=== PATIENT | female | born 1970 | race Caucasian/White ===

== ENCOUNTER 2019-06-13 03:14 | Emergency (ER) | payer SELFPAY ==
[2019-06-13 03:25] VITALS: BP 111/74
[2019-06-13] MEDS ORDERED: DEXAMETHASONE 10 MG/ML VIAL PO STA (03:41)
[2019-06-13] MEDS ORDERED: CHERRY SYRUP 10 ML UDC PO ONE (03:41)
--- NOTE | 2019-06-13 03:44 | ED Physician Documentation ---
PD HPI HEENT - Stated complaint Stated Complaint: SCRATCHY THROAT/RUNNY NOSE - Chief complaint Chief Complaint: Heent - History obtained from History obtained from: Patient, Friend - History of Present Illness Timing - onset: How many days ago (2) Timing - duration: Days (2) Timing - details: Gradual onset, Still present Location: Nose, Throat Worsens: [place] Associated symptoms: Congestion, Rhinorrhea, Cough Similar symptoms before: Diagnosis (flu, strep, om) Recently seen: Not recently seen - Additional information Additional information: Previously well 48-year-old female who is visiting here from [place] has developed a cough and congestion with a sore throat. She has some aches and pains as well and she is here for treatment. Review of Systems Constitutional: reports: Fever, Chills, Myalgias, Fatigue Eyes: denies: Decreased vision Ears: denies: Ear pain Nose: reports: Rhinorrhea / runny nose, Congestion Throat: reports: Sore throat Cardiac: denies: Chest pain / pressure, Palpitations Respiratory: reports: Cough. 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 - Past Surgical History Past Surgical History: No - Present Medications Home Medications: Ambulatory Orders Medication Instructions Recorded Confirmed Azithromycin [Zithromax] 250 mg PO DAILY #4 tablet 06/13/19 - Allergies Allergies/Adverse Reactions: Allergies Allergy/AdvReac Type Severity Reaction Status Date / Time No Known Drug Allergies Allergy Verified 06/13/19 03:25 - Social History Does the pt smoke?: Yes Smoking Status: Current every day smoker Does the pt drink ETOH?: No Does the pt have substance abuse?: No - Immunizations Immunizations are current?: Yes - POLST Patient has POLST: No PD ED PE NORMAL - Vitals Vital signs reviewed: Yes (normal ) - General General: Alert and oriented X 3, No acute distress, Well developed/nourished - HEENT HEENT: Atraumatic, PERRL, EOMI, Other (both TM's are flush and there is tympanosclerosis on the right. The pharynx is generally erythematous without exudate) - Neck Neck: Supple, no meningeal sign, No bony TTP - Cardiac Cardiac: RRR, No murmur - Respiratory Respiratory: No respiratory distress, Clear bilaterally - Abdomen Abdomen: Soft, Non tender - Back Back: No CVA TTP, No spinal TTP - Derm Derm: Normal color, Warm and dry, No rash - Extremities Extremities: No deformity, No edema, No calf tenderness / cord - Neuro Neuro: Alert and oriented X 3, project surveyor 2-12 intact, No motor deficit, Normal speech Eye Opening: Spontaneous Motor: Obeys Commands Verbal: Oriented GCS Score: 15 - Psych Psych: Normal mood, Normal affect Results - Vitals Vitals: Vital Signs - 24 hr 06/13/19 03:23 Temperature 36.3 C L Heart Rate 81 Respiratory 16 Rate Blood Pressure 111/74 O2 Saturation 99 Oxygen O2 Source Room air - Labs Labs: Laboratory Tests 06/13/19 03:15 Group A Strep Rapid Negative PD MEDICAL DECISION MAKING - ED course Complexity details: reviewed results, re-evaluated patient, considered differential, d/w patient, d/w family ED course: 48-year-old female with a sore throat has bilateral otitis on exam and she is administered dexamethasone 10 mg orally and we will place her on some azithromycin. Departure - Departure Disposition: 01 Home, Self Care Clinical Impression: Otitis media Qualifiers: Chronicity: acute Laterality: bilateral Recurrence: not specified as recurrent Spontaneous tympanic membrane rupture: without spontaneous rupture Condition: Stable Instructions: ED Otitis Media Acute Adult Follow-Up: Your, doctor [Other] Prescriptions: Azithromycin [Zithromax] 250 mg PO DAILY #4 tablet
[2019-06-13] MEDS ORDERED: AZITHROMYCIN 250 MG TABLET PO STA (03:46)
== END 2019-06-13 03:56 | disposition home or self-care (01) ==
LOC: ED 03:14
DX: H66.93 Otitis media, unspecified, bilateral (principal); H74.01 Tympanosclerosis, right ear; J02.9 Acute pharyngitis, unspecified; F17.200 Nicotine dependence, unspecified, uncomplicated
CPT/HCPCS: 87070; 87430; 99283; 99284; A9270

== ENCOUNTER 2022-11-29 10:11 | Outpatient (CLI) | payer MEDICAID ==
[2022-11-29 15:26] LABS: BASOPHILS % (AUTO) 0.4 %; EOSINOPHILS # (AUTO) 0.2 10^3/uL (0.0-0.7); EOSINOPHILS % (AUTO) 2.2 %; HCT - HEMATOCRIT 44.9 % (37.0-47.0); HGB - HEMOGLOBIN 15.3 g/dL (12.0-16.0); LYMPHOCYTES # (AUTO) 2.1 10^3/uL (1.5-3.5); MEAN CORPUSCULAR HEMOGLOBIN 31.9 pg (27.0-31.0); MEAN CORPUSCULAR HGB CONC 34.1 g/dL (32.0-36.0); MEAN CORPUSCULAR VOLUME 93.7 fL (81.0-99.0); MEAN PLATELET VOLUME 11.1 fL (7.9-10.8); MONOCYTES # (AUTO) 0.5 10^3/uL (0.0-1.0); MONOCYTES % (AUTO) 6.8 %; NEUTROPHILS # (AUTO) 4.5 10^3/uL (1.5-6.6); NEUTROPHILS % (AUTO) 61.3 %; PLT - PLATELET COUNT 243 10^3/uL (130-450); RED BLOOD COUNT 4.79 10^6/uL (4.20-5.40); RED CELL DISTRIBUTION WIDTH 12.4 % (12.0-15.0); WHITE BLOOD COUNT 7.4 x10^3/uL (4.8-10.8)
[2022-11-29 15:58] LABS: ALBUMIN 4.2 g/dL (3.2-5.5); ALBUMIN/GLOBULIN RATIO 1.6 (1.0-2.2); ALKALINE PHOSPHATASE 93 IU/L (42-121); ALT ALANINE AMINOTRANSFERASE 12 IU/L (10-60); AST ASPARTATE AMINOTRANSFERASE 13 IU/L (10-42); BILIRUBIN,TOTAL 0.6 mg/dL (0.2-1.0); BUN - BLOOD UREA NITROGEN 15 mg/dL (6-20); CALCIUM 9.2 mg/dL (8.5-10.3); CARBON DIOXIDE - CO2 27 mmol/L (21-32); CHLORIDE 106 mmol/L (101-111); CHOL/HDL RATIO 3.8 (<4.4); CHOLESTEROL 218 mg/dL; CREATININE 0.8 mg/dL (0.4-1.0); GFR - MDRD 76 (>89); GLUCOSE 86 mg/dL (70-100); HDL CHOLESTEROL 57 mg/dL; LDL CHOLESTEROL,CALCULATED 142 mg/dL; LDL/HDL RATIO 2.5 (<4.4); POTASSIUM 4.1 mmol/L (3.5-5.0); SODIUM 140 mmol/L (135-145); TOTAL PROTEIN 6.9 g/dL (6.7-8.2); TRIGLYCERIDES 95 mg/dL; VLDL CHOLESTEROL 19 mg/dL
== END 2022-11-29 10:12 | disposition home or self-care (01) ==
LOC: LAB.S 10:11
PROVIDERS: ATTEND Internal Medicine
DX: Z13.228 Encounter for screening for other metabolic disorders (principal); Z13.220 Encounter for screening for lipoid disorders; Z13.29 Encounter for screening for other suspected endocrine disorder; Z13.0 Encounter for screening for diseases of the blood and blood-forming organs and certain disorders involving the immune mechanism
CPT/HCPCS: 36415; 80050; 80061; 83721

== ENCOUNTER 2022-12-15 21:36 | Outpatient (CLI) | payer MEDICAID ==
--- NOTE | 2022-12-16 09:37 | Ultrasound Report ---
PROCEDURE: Pelvic w/Transvaginal INDICATIONS: SCREENING FOR LUNG CA, LOWER ABD PAIN TECHNIQUE: Real-time scanning was performed of the pelvic organs, with image documentation. Additional endovagi nal scanning was necessary due to incomplete visualization of the adnexal and endometrial structures by transabdominal scanning. COMPARISON: None. FINDINGS: Uterus: Uterus is anteverted and normal in size at 8.3 x 4.6 x 5.6 cm. The myometrium is heterogene ous. The endometrium measures 11 mm in combined thickness. Essure coils in the bilateral adnexa. Ovaries: The right ovary measures 2.3 x 1.6 x 1.9 cm, with a calculated ovarian volume of 4 cc. The left ovary measures 2 x 2.5 x 1.6 cm, with a calculated ovarian volume of cc. The ovaries have a no rmal sonographic appearance. Less than 12 follicles can be seen in each ovary. No adnexal masses ar e seen. Incompletely visualized right ovarian cystic lesion measuring 1.8 cm. Other: No pathologic free abdominal or pelvic fluid. IMPRESSION: Essure coils in the bilateral adnexa. Incompletely visualized right ovarian cystic lesion measuring 1.8 cm. Consider 6 month follow-up with pelvic ultrasound. Reviewed by: Warren Reagan on 12/16/2022 9:36 AM PDT Approved by: Warren Reagan on 12/16/2022 9:36 AM PDT Station ID: [id number]
== END 2022-12-15 21:37 | disposition home or self-care (01) ==
LOC: DI 21:36
PROVIDERS: ATTEND Nurse Practitioner Acute Care
DX: N83.201 Unspecified ovarian cyst, right side (principal); R10.30 Lower abdominal pain, unspecified; N94.12 Deep dyspareunia; Z97.5 Presence of (intrauterine) contraceptive device

== ENCOUNTER 2022-12-23 13:48 | Outpatient (CLI) | payer MEDICAID ==
--- NOTE | 2022-12-26 09:15 | Mammography Report ---
BILATERAL DIGITAL SCREENING MAMMOGRAM 3D/2D: 12/23/2022 CLINICAL: Baseline exam. Routine screening. No prior exams were available for comparison. There are scattered areas of fibroglandular density in both breasts (category b / 25%-50% glandular t issue). No significant masses, calcifications, or other findings are seen in either breast. IMPRESSION: NEGATIVE There is no mammographic evidence of malignancy. A 1 year screening mammogram is recommended. Based on the Tyrer Cuzick model (a risk assessment model) the patients lifetime risk is 8.5% and her 10 year risk is 2.1%. According to the ACR, ACS, and NCCN guidelines, an annual breast MRI exam frankie g with mammogram is recommended if the patients lifetime risk is 20% or greater. This exam was interpreted at Station ID: [id number]. NOTE: For mammograms, a report in lay terms will be sent to the patient. Approximately 15% of breast malignancies will not be visualized mammographically. In the management of a palpable breast mass, a negative mammogram must not discourage biopsy of a clinically suspicious lesion. Electronically Signed By: Simeon teague/octavio:12/26/2022 07:06:49 letter sent: No_Letter ACR BI-RADS Category 1: Negative 3341F PARENCHYMAL PATTERN: (A) - The breast(s) demonstrate(s) scattered fibroglandular densities. BI-RADS CATEGORY: (1) - 1 Mammogram [id number] 1 year screening LATERALITY: (B)
== END 2022-12-23 13:49 | disposition home or self-care (01) ==
LOC: DI 13:48
PROVIDERS: ATTEND Nurse Practitioner Acute Care
DX: Z12.31 Encounter for screening mammogram for malignant neoplasm of breast (principal)

== ENCOUNTER 2022-12-23 15:00 | Outpatient (CLI) | payer MEDICAID ==
--- NOTE | 2022-12-23 16:43 | CT Report ---
PROCEDURE: Low Dose Lung Cancer Screen INDICATIONS: SCREENING FOR LUNG CA TECHNIQUE: Noncontrast low-dose axial images were acquired from the pulmonary apices to the posterior costophren ic angles. Multiplanar MIP reformats were then reconstructed. For radiation dose reduction, the follo wing was used: automated exposure control, adjustment of mA and/or kV according to patient size. COMPARISON: None. FINDINGS: Image quality: Excellent. Prior cancer history: Unknown Lungs and pleura: No pleural effusions. No pneumothorax. Mild biapical scarring. Mild bibasilar atel ectasis more pronounced on the right. No focal consolidation. There is a subpleural 2 mm left upper l obe nodule (89/series 4). Benign 2 mm calcified granuloma in the anterior left upper lobe (127/series 4). A few other tiny punctate calcified granulomas noted in the left lower lobe (201/series 4 and 16 5/series 4) Mediastinum: Heart size is normal. No pericardial effusions. No mediastinal adenopathy by size criter ia. No large vessel abnormality. Chest wall and lower neck: Thyroid is unremarkable. No axillary or supraclavicular adenopathy by size . Bones: No aggressive osseous abnormality. Upper Abdomen: Unremarkable. IMPRESSION: Chest without acute cardiopulmonary abnormalities. Benign appearing 2 mm left lower lobe nodule and multiple benign calcified pulmonary granulomas in th e left lung. Lung RAD: 2 - Benign. Recommendation: Continue annual screening in 12 Months with LDCT Non-Lung Significant Findings: None Reviewed by: Simeon Melvin MD on 12/23/2022 4:42 PM PDT Approved by: Simeon Melvin MD on 12/23/2022 4:42 PM PDT Station ID: [id number]
== END 2022-12-23 23:59 | disposition home or self-care (01) ==
LOC: DI 15:00
PROVIDERS: ATTEND Nurse Practitioner Acute Care
DX: Z12.2 Encounter for screening for malignant neoplasm of respiratory organs (principal); R91.1 Solitary pulmonary nodule

== ENCOUNTER 2023-01-03 09:38 | Outpatient (CLI) | payer MEDICAID ==
[2023-01-03 09:46] LABS: HCT - HEMATOCRIT 41.8 % (37.0-47.0); MEAN CORPUSCULAR HEMOGLOBIN 31.6 pg (27.0-31.0); MEAN CORPUSCULAR HGB CONC 33.5 g/dL (32.0-36.0); MEAN CORPUSCULAR VOLUME 94.4 fL (81.0-99.0); MEAN PLATELET VOLUME 9.8 fL (7.9-10.8); RED BLOOD COUNT 4.43 10^6/uL (4.20-5.40); RED CELL DISTRIBUTION WIDTH 12.5 % (12.0-15.0); WHITE BLOOD COUNT 7.6 x10^3/uL (4.8-10.8)
[2023-01-03 09:57] LABS: CREATININE 0.8 mg/dL (0.4-1.0)
== END 2023-01-03 09:39 | disposition home or self-care (01) ==
LOC: LAB 09:38
PROVIDERS: ATTEND Nurse Practitioner
DX: N94.12 Deep dyspareunia (principal); Z97.5 Presence of (intrauterine) contraceptive device
CPT/HCPCS: 36415; 80048; 85027

== ENCOUNTER 2023-02-01 21:15 | Emergency (ER) | payer MEDICAID ==
[2023-02-01 21:28] VITALS: BP 126/73
[2023-02-01] MEDS ORDERED: AMOX/CLAV 875 MG/125 MG TABLET PO STA (21:50)
--- NOTE | 2023-02-01 21:52 | ED Physician Documentation ---
History of Present Illness - Stated complaint Stated Complaint: TOOTH PAIN - Chief complaint Chief Complaint: Heent - Additonal information Additional information: 52-year-old female who has a history of tobacco use as well as former opioid addiction presents emergency department for evaluation of acute left upper mouth pain. She is being followed by [facility] and has an appointment scheduled in a few weeks to have the teeth in her upper mouth extracted. Reports that today she began having acute pain as well as swelling in her upper cheek. No trismus. No fevers. No dysphonia. Tolerating her oral secretions. 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 : None HEENT: None Psych: None Musculoskeletal: None Derm: None - Past Surgical History Past Surgical History: No - Present Medications Home Medications: Ambulatory Orders Medication Instructions Recorded Confirmed Azithromycin [Zithromax] 250 mg PO DAILY #4 tablet 06/13/19 Amox/Clav 875/125 [Augmentin] 1 each PO Q12H #20 tablet 02/01/23 Chlorhexidine [Peridex] 15 ml PO BID #20 ea 02/01/23 - Allergies Allergies/Adverse Reactions: Allergies Allergy/AdvReac Type Severity Reaction Status Date / Time No Known Drug Allergies Allergy Verified 02/01/23 21:25 - Social History Does the pt smoke?: Yes Smoking Status: Current every day smoker Does the pt drink ETOH?: No Does the pt have substance abuse?: No - Immunizations Immunizations are current?: Yes - POLST Patient has POLST: No PD ED PE NORMAL - General General: Alert and oriented X 3, No acute distress - HEENT HEENT: Atraumatic, Moist mucous membranes. No: Dentition benign (Generally poor dentition. She is missing the left upper posterior molars. However the canine and incisors are grossly decayed. There is some swelling of the left cheek without erythema. No trismus. Normal phonation. Normal swallow. Uvula is midline.) - Neck Neck: Supple, no meningeal sign - Cardiac Cardiac: RRR, No murmur - Respiratory Respiratory: Clear bilaterally Results - Vitals Vitals: Vital Signs - 24 hr 02/01/23 21:23 Temperature 36.7 C Heart Rate 75 Respiratory 19 Rate Blood Pressure 126/73 O2 Saturation 99 Oxygen O2 Source Room air PD Medical Decision Making - ED course Complexity details: d/w patient ED course: 52-year-old female presents emergency department for evaluation of acute left upper mouth pain as well as swelling extending into her cheek. Symptoms began today. She has globally poor dentition and is scheduled upcoming to have multiple teeth extracted at [facility]. Clinically I am suspicious she has an abscess. There are no fevers or trismus therefore will defer imaging today. We will start the patient on Augmentin as well as Peridex. Discussed routine conservative care measures for pain to include Tylenol and ibuprofen. Given the patient's opioid abuse history she is requesting no narcotic Konix which I think is appropriate. We did discuss the usual emergent return precautions for worsening symptoms, trismus, fevers or inability to tolerate oral secretions. Departure - Departure Disposition: 01 Home, Self Care Clinical Impression: Dental abscess Condition: Stable Record reviewed to determine appropriate education?: Yes Instructions: ED Abscess Dental Prescriptions: Amox/Clav 875/125 [Augmentin] 1 each PO Q12H #20 tablet Chlorhexidine [Peridex] 15 ml PO BID #20 ea Comments: Brianne you do have some teeth that need to be pulled by the dentist. Do not miss your upcoming appointment. However it looks like you are having new infection develop. I am going to start you on an antibiotic called Augmentin. This has been sent to the [facility] in [place]. In general I recommend that you take Tylenol and ibuprofen [id number] for mouth discomfort. I also sent a prescription for a medicated mouthwash called Peridex. It can be cost prohibitive so if you cannot afford to fill it then just do the salt water gargles 3 times a day. Return to the ER if you are having worsening symptoms despite the antibiotics.
== END 2023-02-01 21:58 | disposition home or self-care (01) ==
LOC: ED 21:15
DX: K04.7 Periapical abscess without sinus (principal); F17.200 Nicotine dependence, unspecified, uncomplicated
CPT/HCPCS: 99282; 99283; A9270

== ENCOUNTER 2023-04-03 10:12 | Outpatient (CLI) | payer MEDICAID | END 2023-04-03 10:13 | disposition home or self-care (01) | LOC: LAB 10:12 | PROVIDERS: ATTEND Obstetrics & Gynecology | DX: Z01.812 Encounter for preprocedural laboratory examination (principal); R93.89 Abnormal findings on diagnostic imaging of other specified body structures; Z97.5 Presence of (intrauterine) contraceptive device | CPT/HCPCS: 86850; 86900; 86901 ==

== ENCOUNTER 2023-04-04 06:46 | Day surgery (SDC) | payer MEDICAID ==
[2023-04-04] MEDS ORDERED: LACTATED RINGERS 1,000 ML IV ONE ×2 (06:52→09:51)
[2023-04-04 07:10] LABS: HCG UR QUAL NEGATIVE
[2023-04-04] MEDS ORDERED: HYDROmorphone 0.5 MG/0.5 ML SYRINGE IVP PRN (07:15)
[2023-04-04] MEDS ORDERED: ATROPINE ABBOJECT 1 MG/10 ML SYRINGE IVP PRN (07:15)
[2023-04-04] MEDS ORDERED: ONDANSETRON 4 MG/2 ML VIAL IVP PRN (07:15)
[2023-04-04] MEDS ORDERED: ePHEDrine 50 MG/ML VIAL IVP PRN (07:15)
[2023-04-04] MEDS ORDERED: MORPHINE 2 MG/ML CARPUJECT IVP PRN (07:15)
[2023-04-04] MEDS ORDERED: fentaNYL 100 MCG/2 ML VIAL IVP PRN (07:15)
[2023-04-04] MEDS ORDERED: METOCLOPRAMIDE 10 MG/2 ML VIAL IVP PRN (07:15)
[2023-04-04] MEDS ORDERED: NALOXONE 0.4 MG/ML VIAL IVP PRN (07:15)
--- NOTE | 2023-04-04 07:15 | ANESTHESIA ---
Pre-Anesthesia VS, & Labs - Diagnosis thickened endometrium, presence of essure implant - Procedure myosure hysteroscopy, laparoscopic B salpingectomy Vital Signs: Temp Pulse Resp BP Pulse Ox O2 Flow Rate 35.9 C L 60 18 113/76 99 0 04/04/23 07:06 04/04/23 07:06 04/04/23 07:06 04/04/23 07:06 04/04/23 07:06 04/04/23 07:06 Height: 5 ft 6 in Weight (kg): 62.5 kg Body Mass Index: 22.2 BMI Classification: Normal - NPO >8 hours - Is Patient ?: No - Lab Results Lab results reviewed: Yes Home Medications and Allergies Home Medications: Ambulatory Orders Acetaminophen [Tylenol] 650 mg PO Q6H PRN 03/31/23 Ibuprofen [Motrin] 600 mg PO Q6H PRN 03/31/23 Acetaminophen [Tylenol] 650 mg PO Q6H PRN 03/31/23 Ibuprofen [Motrin] 600 mg PO Q6H PRN 03/31/23 Allergies/Adverse Reactions: Allergies Allergy/AdvReac Type Severity Reaction Status Date / Time No Known Drug Allergies Allergy Verified 04/03/23 12:59 Anes History & Medical History - Anesthetic History Anesthesia Complications: reports: No previous complications Family history of Anesthesia Complications: Denies Family history of Malignant Hyperthermia: Denies - Medical History Cardiovascular: reports: None Pulmonary: reports: COPD Gastrointestinal: reports: None Urinary: reports: None Neuro: reports: None Musculoskeletal: reports: None Endocrine/Autoimmune: reports: None Blood Disorders: reports: None Skin: reports: None Smoking Status: Current every day smoker History of Cancer?: No - Surgical History Eyes Ears Nose Throat (EENT): reports: Myringotomy (tubes) Other Past Surgical History: dental exrtractions Exam General: Alert, Oriented x3, Cooperative Dental: Poor dentition, Other (missing 23-26, several broken, several extractions from molar regions as well, none loose) Mouth Openin Fingerbreadth Neck Mobility: Normal Mallampati classification: II Thyromental Distance: 4-6 cm Respiratory: Lungs clear, Normal breath sounds, No respiratory distress Cardiovascular: Regular rate Neurological: Normal speech Mental/Cognitive Status: Alert/Oriented X3, Normal for patient Cognitive Status: Within normal limits Plan Anesthesia Type: General Consent for Procedure(s) Verified and Reviewed: Yes Code Status: Attempt Resuscitation ASA classification: 2-Mild systemic disease Is this case an emergency?: No
[2023-04-04] MEDS ORDERED: SILVER NITRATE APPLICATOR TOP ONE (07:20)
[2023-04-04] MEDS ORDERED: BUPIVACAINE 0.25% PF 30 ML VIAL ONE (07:21)
[2023-04-04] MEDS ORDERED: LIDOCAINE 1%-EPI 1:100000 20 ML MDV ONE (07:21)
[2023-04-04] MEDS ORDERED: MIDAZOLAM 2 MG/2 ML VIAL ONE (07:50)
[2023-04-04] MEDS ORDERED: ROCURONIUM 50 MG/5 ML VIAL ONE ×2 (07:51→09:20)
[2023-04-04] MEDS ORDERED: PROPOFOL 200 MG/20 ML VIAL IVP ONE (07:51)
[2023-04-04] MEDS ORDERED: LIDOCAINE-PF 2% 10 ML AMP SUBQ ONE (07:51)
[2023-04-04] MEDS ORDERED: LACTATED RINGERS 1,000 ML IV SCH (08:00)
[2023-04-04] MEDS ORDERED: LIDOCAINE 1%-EPI 1:100000 20 ML MDV SUBQ ONE ×2 (08:30)
[2023-04-04] MEDS ORDERED: BUPIVACAINE 0.25% PF 30 ML VIAL SUBQ ONE ×2 (08:30)
[2023-04-04] MEDS ORDERED: HYDROcod/ACETAM 5/325 MG TABLET PO PRN (09:45)
[2023-04-04] MEDS ORDERED: KETOROLAC 15 MG/ML VIAL IVP PRN (09:45)
[2023-04-04] MEDS ORDERED: SUGAMMADEX 200 MG/2 ML VIAL IVP ONE (09:45)
[2023-04-04] MEDS ORDERED: fentaNYL 100 MCG/2 ML VIAL ONE (09:48)
--- NOTE | 2023-04-04 09:48 | OPERATIVE REPORT ---
Operative Report - General Procedure Date: 04/04/23 Planned Procedure: Hysteroscopy, dilation and curettage, diagnostic laparoscopy, possible Essure removal possible bilateral salpingectomy, Pre-Op Diagnosis: Pelvic pain, amenorrhea Procedure Performed: Hysteroscopy, dilation and curettage, diagnostic laparoscopy, Essure removal, bilateral salpingectomy, Post Op Diagnosis: Pelvic pain, amenorrhea - Procedure Note Primary Surgeon: Black Goode MD Secondary Surgeon: NIXON Gardner Anesthesia Provider: Tigist Mae CRNA Anesthesia Technique: General ET tube Pathology: Bilateral fallopian tubes IV Fluids (mL): 800 Estimated Blood Loss (mL): 10 Findings: Normal-appearing uterus and ovaries. - Other Other Information/Narrative: Patient was taken to the procedure room and placed in dorsal lithotomy position. Hibiclens was used to clean the operative area. Lansford speculum was palced in the vagina and the cervix was visualized. A cervical block was placed using a combination of Marcaine and lidocaine. The anterior lip the cervix was grasped with a single-tooth tenaculum. The cervix was non-stenotic and allowed the easy passage of dilators. Hysteroscope was then used to hydrodilate using normal saline distention media. Hysteroscope was advanced without difficulty using hydrodistention. Cervical canal was noted to have no lesions. Upon entry into the internal cervical os there was noted to be atrophic within the uterus. Bilateral tubal ostia were noted and no Essure device was noted. Hysteroscope was then removed. A sharp curettage was then performed and the cells were collected on a Telfa. Tenaculum was then removed from the cervix noted to be hemostatic. All instruments removed from the vagina Fluid deficit 50 mL. At that point, the patient was redraped and prepped for the laparoscopic portion of the procedure Patient was prepped and draped in the usual fashion. A bivalve speculum was used to visualize the cervix and a uterine manipulator was placed. 2 mL of 0.25% Marcaine was used below the umbilicus. An 11 blade scalpel was used to incise the skin. Direct visual entry was used to place the infraumbilical trocar. Upon entering the peritoneal cavity, low flow was used to ensure appropriate positioning. Upon visualization of the abdominal cavity, high flow was then initiated. 2 additional trocars was placed under visualization in a similar fashion in the right and left lower quadrants. After visualization of the right fallopian tube, it was grasped with an atraumatic grasper. The mesosal pinx was cauterized and cut with a Ligasure device. We then coagulated the proximal tube and with laparoscopic Metzenbaum scissors, dissected the tube to expose the Essure device. The distal tube was removed. The Essure coils were grasped with a blunt tipped grasper and slowly drawn out of the tube, ensuring both the inner and outer coils were removed.. Attention was then turned to the left fallopian tube which was then removed similarly in addition to the Essure device on that side. The abdomen was reviewed for hemostasis, and a healthy- appearing liver was noted. The trocars were then removed, and abdomen was evacuated of gas. The trocar sites were then closed with a 4-0 Monocryl in a sub-cuticular fashion and covered with Dermabond. Patient was taken to the PACU in stable condition. I appreciate the assistance of NIXON Gardner during this procedure, and the assistance in retraction, visualization, dissection, and overall assistance during the case were instrumental to the patient's wellbeing.
[2023-04-04] MEDS ORDERED: KETOROLAC 15 MG/ML VIAL ONE (10:22)
[2023-04-04 10:44] VITALS: O2SAT 99
[2023-04-04 11:55] VITALS: BP 113/78
--- NOTE | 2023-04-05 13:22 | ANESTHESIA POST OP EVALUATION ---
Anesthesia Post Eval - Post Anesthesia Eval Vitals: Last Vital Signs Temp 36.4 C L 04/04/23 11:10 Pulse 68 04/04/23 11:10 Resp 16 04/04/23 11:10 BP 113/78 04/04/23 11:10 Pulse Ox 99 04/04/23 11:10 O2 Flow Rate 0 04/04/23 07:06 CV Function Including HR & BP: Stable Pain Control: Satisfactory Nausea & Vomiting: Negative Mental Status: Baseline Respiratory Status: Airway Patent Hydration Status: Satisfactory Anesthesia Complications: None
== END 2023-04-04 06:47 | disposition home or self-care (01) ==
LOC: SDS 06:46
PROVIDERS: ATTEND Obstetrics & Gynecology
PROC: 0UDB8ZZ Extraction of Endometrium, Via Natural or Artificial Opening Endoscopic (ICD-10-PCS; principal; 2023-04-04 08:00)
PROC: 0UB74ZZ Excision of Bilateral Fallopian Tubes, Percutaneous Endoscopic Approach (ICD-10-PCS; 2023-04-04 08:00)
DX: R10.2 Pelvic and perineal pain (principal); R93.89 Abnormal findings on diagnostic imaging of other specified body structures; N91.2 Amenorrhea, unspecified; F17.200 Nicotine dependence, unspecified, uncomplicated; J44.9 Chronic obstructive pulmonary disease, unspecified; Z97.5 Presence of (intrauterine) contraceptive device; Z32.02 Encounter for pregnancy test, result negative
CPT/HCPCS: 58558; 58661; 81025; J7120

== ENCOUNTER 2023-05-08 13:56 | Outpatient (CLI) | payer MEDICAID ==
[2023-05-08 20:20] LABS: PROLACTIN 6.33 ng/mL
== END 2023-05-08 13:57 | disposition home or self-care (01) ==
LOC: LAB.S 13:56
PROVIDERS: ATTEND Obstetrics & Gynecology
DX: N91.1 Secondary amenorrhea (principal)
CPT/HCPCS: 36415; 82397; 82670; 83001; 84144; 84146

== ENCOUNTER 2023-06-13 18:45 | Outpatient (CLI) | payer MEDICAID ==
--- NOTE | 2023-06-14 14:34 | Ultrasound Report ---
PROCEDURE: Pelvic w/Transvaginal INDICATIONS: LOWER ABD PAIN TECHNIQUE: Real-time scanning was performed of the pelvic organs, with image documentation. Additional endovagi nal scanning was necessary due to incomplete visualization of the adnexal and endometrial structures by transabdominal scanning. COMPARISON: 12/15/2022 ultrasound pelvis. FINDINGS: Uterus: Uterus is anteverted and normal in size at 7.4 x 3.5 x 5.0 cm. The myometrium is heterogene ous. The endometrium measures 4.1 mm in combined thickness. No uterine fibroids. Ovaries: The right ovary measures 1.6 x 1.3 x 1.5 cm, with a calculated ovarian volume of 1.6 cc. T he left ovary measures 2.0 x 1.4 x 2.3 cm, with a calculated ovarian volume of 3.3 cc. The ovaries h ave a normal sonographic appearance. Less than 12 follicles can be seen in each ovary. No adnexal m asses are seen. No cystic lesions measuring greater than 3 cm. Other: No pathologic free abdominal or pelvic fluid. IMPRESSION: 1.Resolution of prior right ovarian cystic lesion. 2.Unremarkable pelvic ultrasound. Reviewed by: Lincoln Parker MD on 06/14/2023 2:33 PM PDT Approved by: Lincoln Parker MD on 06/14/2023 2:33 PM PDT Station ID: [id number]
== END 2023-06-13 18:46 | disposition home or self-care (01) ==
LOC: DI 18:45
PROVIDERS: ATTEND Nurse Practitioner Acute Care
DX: R10.30 Lower abdominal pain, unspecified (principal); Z87.42 Personal history of other diseases of the female genital tract